=== PATIENT | female | born 1985 | race Caucasian/White ===

== ENCOUNTER 2016-12-03 08:54 | Day surgery (SDC) | payer BC, OTHER ==
[~2016-12-03 08:54] MED LIST: Buffered Lidocaine 0.9% SYRIN* 5 ML/SYR SYRINGE INTRADERM ONE; Famotidine IV* 10 MG/ML 2 ML (20 mg) IV ONE; Morphine INJ* 2 MG/ML 1 ML SYRINGE IV PRN; PROCHLORPERAZINE INJ 5 MG/ML 2 ML VIAL IV PRN; fentaNYL* 50 MCG/ML 2 ML VIAL (100 MCG VIAL) IV PRN; oxyCODONE/Acetamin 5/325 MG* TAB PO PRN
[2016-12-03] MEDS ORDERED: Famotidine IV* 10 MG/ML 2 ML (20 mg) ONE (09:07)
[2016-12-03] MEDS ORDERED: Clindamycin 900 MG IVPREMIX(* 900 MG/50 ML SDV IV ONE (09:07)
[2016-12-03] MEDS ORDERED: Buffered Lidocaine 0.9% SYRIN* 5 ML/SYR SYRINGE ONE (09:07)
[2016-12-03 09:26] LABS: Manual Entry Verification ABI0007; UR Preg Internal Control QC Line Present
[2016-12-03] MEDS ORDERED: Morphine INJ* 10 MG/ML 1 ML SYRINGE ONE (09:56)
[2016-12-03] MEDS ORDERED: Midazolam* 1 MG/ML 5 ML VIAL (5 MG) ONE (09:56)
[2016-12-03] MEDS ORDERED: fentaNYL* 50 MCG/ML 2 ML VIAL (100 MCG VIAL) ONE (09:56)
[2016-12-03] MEDS ORDERED: Atracurium* 10 MG/ML 10 ML VIAL ONE (09:56)
[2016-12-03] MEDS ORDERED: KETAMINE HCL* 50 MG/ML 10 ML VIAL ONE (09:56)
[2016-12-03] MEDS ORDERED: Bupivacaine 0.25% EPI 200,000* 30 ML SDV ONE (11:34)
[2016-12-03] MEDS ORDERED: Ketorolac INJ* 30 MG/ML 1 ML VIAL ONE (13:18)
[2016-12-03] MEDS ORDERED: Glycopyrrolate IV* 0.2 MG/ML 1 ML VIAL ONE ×2 (13:18→13:34)
[2016-12-03] MEDS ORDERED: Ondansetron INJ* 2 MG/ML VIAL ONE (13:18)
[2016-12-03] MEDS ORDERED: Neostigmine Methylsulfate* 2 MG/2 ML SYRINGE ONE (13:18)
[2016-12-03] MEDS ORDERED: PROCHLORPERAZINE INJ 5 MG/ML 2 ML VIAL ONE (13:18)
[2016-12-03] MEDS ORDERED: Propofol* 10 MG/ML 20 ML BTL IV PUSH ONE (13:18)
[2016-12-03] MEDS ORDERED: Lidocaine 2% PF * 5 ML VIAL ONE (13:18)
[2016-12-03] MEDS ORDERED: Dexamethasone IV* 4 MG/ML 1 ML (4 MG) ONE (13:18)
[2016-12-03] MEDS ORDERED: oxyCODONE/Acetamin 5/325 MG* TAB PO PRN (13:40)
[2016-12-03 15:05] VITALS: BP 106/73
--- NOTE | 2016-12-04 06:28 | OP ---
CC: [facility] OPERATIVE REPORT: DATE OF OPERATION: 12/03/16 DATE OF : 85 PRE-OP DIAGNOSIS: Acute calculous cholecystitis. POST-OP DIAGNOSIS: Acute calculous cholecystitis. PROCEDURE: Laparoscopic cholecystectomy. SURGEON: Chaka Cabral MD ASSISTANTS: SAFIA Gonzalez ANESTHESIA: General with local. ANESTHESIOLOGIST: Dr. Lozano. ESTIMATED BLOOD LOSS: Minimal. WOUND CLASSIFICATION: 2. COMPLICATIONS: None. DRAINS: None. FINDINGS: The patient had acute calculous cholecystitis with a thickened edematous wall of the gall bladder and stones within the gallbladder itself. BRIEF HISTORY: Please see the dictated history and physical. Ms. Evans is a 31- year-old woman who has had up to 4 or 5 days of right upper quadrant abdominal pain with gallstones, persistent yuliya n, although she has been improving with overall antibiotics and was seen in the office and scheduled immediately for cholecystectomy. PROCEDURE: Written informed consent was obtained, and the abdomen was marked with indelible ink. P reoperative antibiotics were administered. The patient was taken to the operating room, placed in t he supine position. Sequential compression devices and a warming blanket were applied. General anesthesia was administered, and the abdomen was prepped and draped in the usual sterile fas hion. Time-out verification was completed. Small transverse incision was made just above the umbilicus in the midline and the peritoneal cavity was entered under direct vision. A 12-mm blunt port was inserted and the abdomen was insufflated t o 15 mmHg. Under direct vision, a 11-mm epigastric port was placed and two 5-mm ports were placed in the right side of the abdominal wall. The gallbladder was identified. It was whitish in color and has a slightly thickened wall, but we w ere able to grasp this and elevate it up over the liver bed. The infundibular area was identified a nd grasped and the dissection commenced along the medial and lateral aspects of the gallbladder in t his area. We did take down the thickened peritoneum, which was as expected and consistent with acut e calculous cholecystitis. I was able to identify and dissect the cystic duct and artery as they en tered the gallbladder. I took a significant portion of the inferior part of the gallbladder off the liver bed using the critical view technique to assure myself of these 2 structures. The cystic duct did not appear to be dilated. This was then triply clipped and divided as well as t he cystic artery, which was clipped and divided. The gallbladder was removed from the liver bed using cautery and brought out through the umbilical i ncision with an Endo Catch bag, although it was somewhat thick-walled and there were several large g allstones, making this portion of the case somewhat challenging. The liver bed was then irrigated. Hemostasis was assured. All ports were removed under direct visi on of the camera. There was no abdominal wall bleeding. The umbilical fascia was closed with inter rupted 0 Polysorb suture. The skin at all 4 incisions was approximated with subcuticular 4-0 Polyso rb suture. Steri-Strips and sterile dressings were applied. The patient tolerated the procedure we ll and was taken to the recovery room in stable condition. [id number]/[facility] #: [id number]
== END 2016-12-03 15:36 | disposition home or self-care (01) ==
LOC: OR 08:54
PROVIDERS: ATTEND Surgery
DX: K80.12 Calculus of gallbladder with acute and chronic cholecystitis without obstruction (principal)
CPT/HCPCS: 81025; 88304; J0780; J1100; J1885; J2250; J2270; J2405; J2704; J3010